=== PATIENT | female | born 1995 | race Caucasian/White ===

== ENCOUNTER 2017-08-29 16:56 | Emergency (ER) | payer SELFPAY ==
--- NOTE | 2017-08-29 18:39 | RADIOLOGY REPORT (SQ) ---
EXAM DESCRIPTION: WRIST RIGHT 3 VIEWS COMPLETED DATE/TIME: 08/29/2017 6:31 pm REASON FOR STUDY: pain and injury COMPARISON: None. NUMBER OF VIEWS: Three views. TECHNIQUE: AP, lateral, and oblique radiographic images acquired of the right wrist. LIMITATIONS: None. FINDINGS: MINERALIZATION: Normal. BONES: No acute fracture or dislocation. No worrisome bone lesions. Normal alignment. SOFT TISSUES: No soft tissue swelling. No foreign body. OTHER: No other significant finding. IMPRESSION: NEGATIVE STUDY OF THE RIGHT WRIST. NO RADIOGRAPHIC EVIDENCE OF ACUTE INJURY. TECHNICAL DOCUMENTATION: JOB ID: [id number] [employer]- All Rights Reserved
[2017-08-29] MEDS ORDERED: IBUPROFEN 600 MG TABLET PO ONE (20:54)
--- NOTE | 2017-08-29 20:56 | ER Document Report ---
HPI - HPI Patient complains to provider of: right wrist pain Pain Level: 3 Context: Patient is a 22-year-old female that comes emergency department for chief complaint of right wrist pain. She states that she fell while trying to snowboard and injured her wrist. She is unsure of the position that she hit her wrist and. She states that she started having swelling although the swelling has significantly decreased since this happened about 3 days ago. She denies elbow pain, shoulder pain, head injury. She denies any other injuries or symptoms. LMP within the past month. - CONSTITUTIONAL Constitutional: DENIES: Fever, Chills - REPRODUCTIVE LMP: 08/21/17 Reproductive: DENIES: : - MUSCULOSKELETAL Musculoskeletal: REPORTS: Extremity pain - right wrist Past Medical History - General Information source: Patient - Social History Smoking Status: Never Smoker Chew tobacco use (# tins/day): No Frequency of alcohol use: None Drug Abuse: None Lives with: Family Family History: None Patient has suicidal ideation: No Patient has homicidal ideation: No Pulmonary Medical History: Reports: Hx Asthma Renal/ Medical History: Denies: Hx Peritoneal Dialysis Surgical Hx: Negative - Immunizations Immunizations up to date: Yes Hx Diphtheria, Pertussis, Tetanus Vaccination: Yes Vertical Provider Document - CONSTITUTIONAL General Appearance: WD/WN, No Apparent Distress - INFECTION CONTROL TRAVEL OUTSIDE OF THE [place] IN LAST 30 DAYS: No - HEENT HEENT: Atraumatic, Normocephalic - NECK Neck: Normal Inspection - RESPIRATORY Respiratory: Breath Sounds Normal, No Respiratory Distress O2 Sat by Pulse Oximetry: 99 - CARDIOVASCULAR Cardiovascular: Regular Rate, Regular Rhythm - GI/ABDOMEN Gastrointestinal: Abdomen Soft, Abdomen Non-Tender - BACK Back: Normal Inspection - MUSCULOSKELETAL/EXTREMETIES Musculoskeletal/Extremeties: Tender - Tenderness over the right ulnar wrist, no snuffbox tenderness, mild soft tissue swelling, normal hand exam otherwise, normal range of motion of the wrist, fingers, normal capillary refill and sensation, normal elbow and shoulder exam. - NEURO Level of Consciousness: Awake, Alert, Appropriate - DERM Integumentary: Warm, Dry, No Rash Course - Re-evaluation Re-evalutation: Images reviewed and shows no fracture, no snuffbox tenderness, mild soft tissue swelling which has already significantly improved per patient, appears to be a sprain. Patient placed in immobilization for comfort, discussed treatment, follow-up, return precautions. Patient states understanding and agreement. - Vital Signs Vital signs: Temp Pulse Resp BP Pulse Ox 98.3 F 116 H 20 133/77 H 99 08/29/17 17:09 08/29/17 17:09 08/29/17 17:09 08/29/17 17:09 08/29/17 17:09 - Diagnostic Test Radiology reviewed: Image reviewed, Reports reviewed Procedures - Immobilization Right wrist Pre-Proc Neuro Vasc Exam: Normal Immobilizer type: Cock-up Performed by: RN, PCT Post-Proc Neuro Vasc Exam: Normal Alignment checked and good: Yes Discharge - Discharge Clinical Impression: Right wrist injury Qualifiers: Encounter type: initial encounter Qualified Code(s): S69.91XA - Unspecified injury of right wrist, hand and finger(s), initial encounter Condition: Stable Disposition: HOME, SELF-CARE Additional Instructions: X-rays do not show fracture, examination and symptoms are consistent with sprain and soft tissue swelling. Ice the area 3-4 times a day for 10-15 minutes , wear the supportive brace for comfort, take the ibuprofen prescribed, rest your wrist. Follow-up with primary care. Return to the emergency department for any concerning worsening symptoms including severe swelling or redness to the area. Prescriptions: Ibuprofen [Motrin 600 mg Tablet] 600 mg PO Q8HP PRN #24 tablet PRN Reason:
[2017-08-29 21:31] VITALS: BP 116/76
== END 2017-08-29 21:31 | disposition home or self-care (01) ==
LOC: ER 16:56
DX: S69.91XA Unspecified injury of right wrist, hand and finger(s), initial encounter (principal); W00.0XXA Fall on same level due to ice and snow, initial encounter; Y93.23 Activity, snow (alpine) (downhill) skiing, snowboarding, sledding, tobogganing and snow tubing
CPT/HCPCS: 99283; 73110; L3908